=== PATIENT | male | born 1990 | race African-American/Black ===

== ENCOUNTER 2017-02-26 15:43 | Emergency (ER) | payer OTHER ==
[~2017-02-26] VITALS: Ht 182.9 cm; Wt 63.6 kg
[~2017-02-26 15:43] MED LIST: ELIMITE TOP
[2017-02-26 15:46] VITALS: TEMP 98.9
[2017-02-26 16:17] LABS: COLLECTION METHOD CLEAN CATCH
[2017-02-26 16:30] LABS: MUCOUS Present /lpf; PH 5 (5-8); SQUAMOUS EPITHELIAL 0-2 /hpf; URINE APPEARANCE Clear; URINE BACTERIA None Seen /hpf; URINE BILIRUBIN Negative (NEGATIVE); URINE BLOOD Negative (NEGATIVE); URINE COLOR Yellow; URINE GLUCOSE Negative (NEGATIVE); URINE KETONE Negative (NEGATIVE); URINE LEUKOCYTE ESTERASE 1+ (NEGATIVE); URINE NITRATE Negative (NEGATIVE); URINE PROTEIN(semi-quant) Negative (NEGATIVE); URINE RBC 0-2 /hpf; URINE UROBILINOGEN >=4.0 mg/dL (NEGATIVE)
[2017-02-26] MEDS ORDERED: DOXYCYCLINE 10100 MG PO (17:41)
[2017-02-26 17:57] VITALS: BP 126/84; PULSE 60
== END 2017-02-26 17:58 | disposition home or self-care (01) ==
LOC: COL.ER 15:43
PROVIDERS: Emergency Medicine
DX: N39.0 Urinary tract infection, site not specified (principal); N50.812 Left testicular pain; Z87.438 Personal history of other diseases of male genital organs
CPT/HCPCS: J0696

== ENCOUNTER 2019-04-20 17:19 | Emergency (ER) | payer SELFPAY ==
[~2019-04-20] VITALS: Ht 175.3 cm; Wt 61.4 kg
[~2019-04-20 17:19] MED LIST changes: +DOXYCYCLINE 10100 MG PO
[2019-04-20 17:22] VITALS: TEMP 97.9
[2019-04-20] MEDS ORDERED: AMOXICILLIN 8751 TAB PO (18:38)
[2019-04-20 18:57] VITALS: BP 136/92; PULSE 53
== END 2019-04-20 19:00 | disposition home or self-care (01) ==
LOC: COL.ER 17:19
DX: S41.111A Laceration without foreign body of right upper arm, initial encounter (principal); Z23 Encounter for immunization; X99.1XXA Assault by knife, initial encounter; Y07.04 Female partner, perpetrator of maltreatment and neglect
CPT/HCPCS: J0696

== ENCOUNTER 2020-10-21 15:52 | Emergency (ER) | payer OTHER ==
[~2020-10-21 15:52] MED LIST changes: +AMOXICILLIN 8751 TAB PO
== END 2020-10-21 16:50 | disposition left against medical advice (07) ==
LOC: COL.ER 15:52
DX: R69 Illness, unspecified (principal)

== ENCOUNTER 2020-11-16 20:20 | Emergency (ER) | payer SELFPAY ==
[~2020-11-16] VITALS: Ht 182.9 cm; Wt 61.4 kg
[2020-11-16 20:46] LABS: COLLECTION METHOD CLEAN CATCH
[2020-11-16 21:09] LABS: MUCOUS Present /lpf; PH 6 (5-8); SQUAMOUS EPITHELIAL None Seen /hpf; URINE APPEARANCE Turbid; URINE BACTERIA None Seen /hpf; URINE BILIRUBIN Negative (NEGATIVE); URINE BLOOD 3+ (NEGATIVE); URINE COLOR Yellow; URINE GLUCOSE Negative (NEGATIVE); URINE KETONE Negative (NEGATIVE); URINE LEUKOCYTE ESTERASE 3+ (NEGATIVE); URINE NITRATE Negative (NEGATIVE); URINE PROTEIN(semi-quant) 2+ (NEGATIVE); URINE RBC >50 /hpf; URINE UROBILINOGEN >=4.0 mg/dL (NEGATIVE)
[2020-11-16] MEDS ORDERED: DOXYCYCLINE 10100 MG PO (21:57)
[2020-11-16 22:36] VITALS: BP 128/77; PULSE 58; TEMP 98
== END 2020-11-16 22:36 | disposition home or self-care (01) ==
LOC: COL.ER 20:20
PROVIDERS: Emergency Medicine
DX: N34.2 Other urethritis (principal)
CPT/HCPCS: J0696